=== PATIENT | male | born 1990 | race African-American/Black ===

== ENCOUNTER 2021-02-03 22:27 | Emergency (ER) | payer SELFPAY ==
[~2021-02-03] VITALS: Ht 167.6 cm; Wt 77.0 kg
[2021-02-03] MEDS ORDERED: PREDNISONE 20MG TABLET PO ONE (23:00)
[2021-02-03] MEDS ORDERED: DIPHENHYDRAMINE 50MG CAPSULE PO ONE (23:00)
[2021-02-04] MEDS ORDERED: DIPH25CA83 MT (00:02)
[2021-02-04] MEDS ORDERED: P50 MT (00:03)
[2021-02-04 00:10] VITALS: BP 135/87
== END 2021-02-04 00:18 | disposition home or self-care (01) ==
LOC: ER 23:01
DX: T78.40XA Allergy, unspecified, initial encounter (principal); Z91.013 Allergy to seafood; X58.XXXA Exposure to other specified factors, initial encounter
CPT/HCPCS: 99283; J7512; Q0163; Z7610